=== PATIENT | male | born 1995 | race African-American/Black ===

== ENCOUNTER 2020-04-03 22:20 | Emergency (ER) | payer OTHER ==
[~2020-04-03] VITALS: Ht 152.4 cm; Wt 77.1 kg
[2020-04-03] MEDS ORDERED: PAXIL40 MG PO (22:25)
[2020-04-03] MEDS ORDERED: DIVALPROEX SOD250 M1 PO (22:27)
[2020-04-03] MEDS ORDERED: PREDNISONE 10 M10 M1 PO (23:18)
[2020-04-03 23:29] VITALS: BP 150/101
== END 2020-04-03 23:31 | disposition home or self-care (01) ==
LOC: ER 22:20
DX: G51.0 Bell's palsy (principal); F17.210 Nicotine dependence, cigarettes, uncomplicated; Z79.899 Other long term (current) drug therapy